=== PATIENT | female | born 1955 | race Asian ===

== ENCOUNTER 2024-07-31 10:28 | Emergency (ER) | payer OTHER, MEDICAID ==
[~2024-07-31] VITALS: Ht 152.4 cm; Wt 61.4 kg
[2024-07-31 10:38] VITALS: TEMP 97.9
[2024-07-31] MEDS ORDERED: IBUP-1492 PO (13:10)
[2024-07-31] MEDS ORDERED: LIDO700A15 TP (13:11)
[2024-07-31] MEDS ORDERED: CYCL-448 PO (13:11)
[2024-07-31] MEDS ORDERED: LIDOCAINE 5% 36 GM OINTMENT TP ONE (13:15)
[2024-07-31] MEDS: IBUPROFEN 600 MG TABLET PO ONE (13:17)
[2024-07-31] MEDS: ACETAMINOPHEN 500 MG TABLET PO ONE (13:18)
[2024-07-31] MEDS: LIDOCAINE 5% TRANSDERMAL PATCH TD ONE (13:21)
[2024-07-31 13:52] VITALS: BP 145/73; PULSE 61; RESP 18; O2SAT 98
== END 2024-07-31 14:13 | disposition home or self-care (01) ==
LOC: EMS 10:40
DX: M25.512 Pain in left shoulder (principal); M19.90 Unspecified osteoarthritis, unspecified site; Z71.6 Tobacco abuse counseling
CPT/HCPCS: 99284; Z7502; Z7610